=== PATIENT | male | born 1975 | race Caucasian/White ===

== ENCOUNTER → 2017-07-21 | Outpatient (CLI) | payer OTHER ==
--- NOTE | 2017-07-21 15:09 | RAD ---
Acute abdomen series with chest, 3 views, 07/21/2017: History: Generalized abdominal pain The abdominal gas pattern is unremarkable without evidence of obstruction. No free air is seen in the abdomen. There is no evidence of organomegaly. Lower pelvic calcifications are compatible with phleboliths. The heart size is normal. The lungs are clear. There is no evidence of pleural fluid. IMPRESSION: No acute abdominal abnormality is detected.
== END | disposition home or self-care (01) ==
LOC: PMG 14:26
PROVIDERS: ATTEND Physician Assistant
DX: R10.9 Unspecified abdominal pain (principal)
CPT/HCPCS: 74022

== ENCOUNTER → 2017-10-28 | Outpatient (CLI) | payer OTHER ==
--- NOTE | 2017-10-28 12:40 | RAD ---
PA and lateral chest radiograph. History: Cough. Comparison: July 21, 2017. Findings: Cardiomediastinal silhouette is within normal limits for size. No pneumothorax or pleural effusion is identified. Patchy consolidation is seen in the left lower lobe, compatible with pneumonia. Impression: 1. Left lower lobe infiltrate, compatible with pneumonia. Recommend appropriate treatment and follow-up PA and lateral chest radiograph in 6-8 weeks to ensure resolution. Electronically signed by: Abdiaziz Rao MD (10/28/2017 12:36 PM) [place] [id number]
== END | disposition home or self-care (01) ==
LOC: PMG 12:08
PROVIDERS: ATTEND Physician Assistant
DX: R06.00 Dyspnea, unspecified (principal)
CPT/HCPCS: 71046

== ENCOUNTER → 2017-11-11 | Outpatient (CLI) | payer OTHER ==
--- NOTE | 2017-11-11 16:25 | RAD ---
EXAM: Chest, 2 views. HISTORY: Pneumonia. COMPARISON: 10/28/2017 FINDINGS: Frontal and lateral views of the chest are obtained. There has been slight interval decrease in left lower lobe infiltrate. There is no pleural effusion or pneumothorax. The heart is normal in size. IMPRESSION: Slight interval decrease in left lower lobe infiltrate. Continued follow-up is recommended to confirm complete resolution Electronically signed by: Heaven Holloway MD (11/11/2017 4:21 PM) [place] [id number]
== END | disposition home or self-care (01) ==
LOC: DXRAD 15:52
PROVIDERS: ATTEND Physician Assistant
DX: J18.1 Lobar pneumonia, unspecified organism (principal); R91.8 Other nonspecific abnormal finding of lung field
CPT/HCPCS: 71046

== ENCOUNTER 2017-12-03 19:54 | Emergency (ER) | payer OTHER ==
[~2017-12-03] VITALS: Ht 172.7 cm; Wt 144.8 kg
[2017-12-03] MEDS ORDERED: IV RINGERS SOLUTION,LACTATED 1,000 ML IV ONE (20:45)
[2017-12-03 20:58] LABS: BASO % 1 % (0-3); EOS # 0.2 x10^3/uL (0.0-0.7); EOS % 2 % (0-3); HEMATOCRIT 47.3 % (39.0-53.0); HEMOGLOBIN 15.8 g/dL (13.0-17.5); LYMPH # 2.5 x10^3/uL (1.0-4.8); LYMPH % 24 % (24-48); MEAN CORPUSCULAR HEMOGLOBIN 29 pg (25-35); MEAN CORPUSCULAR HGB CONC 33 g/dL (31-37); MEAN CORPUSCULAR VOLUME 86 fL (79-100); MONO # 0.9 x10^3/uL (0.0-1.1); MONO % 8 % (0-9); NEUT # 6.9 x10^3uL (1.8-7.7); NEUT % 65 % (31-73); PLATELET COUNT 176 x10^3/uL (140-400); RED BLOOD COUNT 5.51 x10^6/uL (4.30-5.70); RED CELL DISTRIBUTION WIDTH 14.7 % (11.5-14.5); WHITE BLOOD COUNT 10.5 x10^3/uL (4.0-11.0)
--- NOTE | 2017-12-03 21:15 | ED.ADGEN ---
Past History Past Medical History: Pneumonia, Other Adult General Chief Complaint Chief Complaint ".. I ve had cough and pneumonia for a month now.. I ve been thru. 4 course of antibiotics... I am still coughing to the point I almost pass out... I cant get in to see Dr. Ramirez for almost a month more... I also had course of steroids.... I don't smoke any more... this all started with a pneumonia...they say it can still be seen on the Lt. ... and that where I hurt... .. I do have HTN... and once they diagnosed me with Bronchitis..." HPI HPI Patient is a 42 year old male who presents with above hx and complaints of dyspnea and pleuritic chest pain. 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) Review of Systems Review of Systems Constitutional: Denies fever or chills [] Eyes: Denies change in visual acuity, redness, or eye pain [] HENT: Denies nasal congestion or sore throat [] Respiratory: History of cough that is now nonproductive Cardiovascular: No additional information not addressed in HPI [] GI: Denies abdominal pain, nausea, vomiting, bloody stools or diarrhea [] : Denies dysuria or hematuria [] Musculoskeletal: Denies back pain or joint pain [] Integument: Denies rash or skin lesions [] Neurologic: Denies headache, focal weakness or sensory changes [] Endocrine: Denies polyuria or polydipsia [] All other systems were reviewed and found to be within normal limits, except as documented in this note. Family History Family History Noncontributory Current Medications Current Medications Current Medications Medications (Trade) Dose Ordered Sig/Jeanmarie Start Time Stop Time Status Last Admin Dose Admin Iohexol (Omnipaque 300 Mg/ml) 75 ml 1X ONCE 12/03/17 22:00 12/03/17 22:01 DC 12/03/17 22:10 75 ML Lactated Ringer's 1,000 ml @ 75 mls/hr 1X ONCE 12/03/17 20:45 12/04/17 03:06 DC 12/03/17 22:31 75 MLS/HR Allergies Allergies Allergies Coded Allergies Type Severity Reaction Last Updated Verified No Known Drug Allergies 12/03/17 No Physical Exam Physical Exam Constitutional: Well developed, well nourished, no acute distress, non-toxic appearance. [] HENT: Normocephalic, atraumatic, bilateral external ears normal, oropharynx moist, no oral exudates, nose normal. [] Eyes: PERRLA, EOMI, conjunctiva normal, no discharge. [] Neck: Normal range of motion, no tenderness, supple, no stridor. [] Cardiovascular:Heart rate regular rhythm, no murmur [] Lungs & Thorax: Bilateral breath sounds equal at apexes with scattered wheezes on auscultation []doesn't appear to be some increased crackles in left base posteriorly which clears with cough. Abdomen: Bowel sounds normal, soft, no tenderness, no masses, no pulsatile masses. [] Skin: Warm, dry, no erythema, no rash. [] Back: No tenderness, no CVA tenderness. [] Extremities: No tenderness, no cyanosis, no clubbing, ROM intact, no edema. [] No cording noted. Neurologic: Alert and oriented X 3, normal motor function, normal sensory function, no focal deficits noted. [] Psychologic: Affect normal, judgement normal, mood normal. [] Current Patient Data Lab Results Laboratory Tests Test 12/03/17 20:00 12/03/17 21:00 12/03/17 21:45 White Blood Count 10.5 x10^3/uL (4.0-11.0) Red Blood Count 5.51 x10^6/uL (4.30-5.70) Hemoglobin 15.8 g/dL (13.0-17.5) Hematocrit 47.3 % (39.0-53.0) Mean Corpuscular Volume 86 fL (79-100) Mean Corpuscular Hemoglobin 29 pg (25-35) Mean Corpuscular Hemoglobin Concent 33 g/dL (31-37) Red Cell Distribution Width 14.7 % (11.5-14.5) H Platelet Count 176 x10^3/uL (140-400) Neutrophils (%) (Auto) 65 % (31-73) Lymphocytes (%) (Auto) 24 % (24-48) Monocytes (%) (Auto) 8 % (0-9) Eosinophils (%) (Auto) 2 % (0-3) Basophils (%) (Auto) 1 % (0-3) Neutrophils # (Auto) 6.9 x10^3uL (1.8-7.7) Lymphocytes # (Auto) 2.5 x10^3/uL (1.0-4.8) Monocytes # (Auto) 0.9 x10^3/uL (0.0-1.1) Eosinophils # (Auto) 0.2 x10^3/uL (0.0-0.7) Basophils # (Auto) 0.0 x10^3/uL (0.0-0.2) Troponin I Quantitative < 0.017 ng/mL (0-0.055) Prothrombin Time 10.0 SEC (9.4-11.4) Prothrombin Time INR 1.0 (0.9-1.1) PTT 26 SEC (23-33) Sodium Level 143 mmol/L (136-145) Potassium Level 4.3 mmol/L (3.5-5.1) Chloride Level 106 mmol/L (98-107) Carbon Dioxide Level 29 mmol/L (21-32) Anion Gap 8 (6-14) Blood Urea Nitrogen 15 mg/dL (8-26) Creatinine 0.8 mg/dL (0.7-1.3) Estimated GFR (Cockcroft-Gault) 107.1 Glucose Level 98 mg/dL (70-99) Calcium Level 9.2 mg/dL (8.5-10.1) Total Bilirubin 0.4 mg/dL (0.2-1.0) Direct Bilirubin 0.1 mg/dL (0.0-0.2) Aspartate Amino Transferase (AST) 37 U/L (15-37) Alanine Aminotransferase (ALT) 81 U/L (16-63) H Alkaline Phosphatase 80 U/L (46-116) QE-Wqa-X-Type Natriuretic Peptide 8 pg/mL (0-124) Total Protein 7.3 g/dL (6.4-8.2) Albumin 3.5 g/dL (3.4-5.0) Urine Collection Type Unknown Urine Color Yellow Urine Clarity Clear Urine pH 6.0 Urine Specific Stark >=1.030 Urine Protein Neg (NEG-TRACE) Urine Glucose (UA) Neg mg/dL (NEG) Urine Ketones (Stick) Neg mg/dL (NEG) Urine Blood Neg (NEG) Urine Nitrite Neg (NEG) Urine Bilirubin Neg (NEG) Urine Urobilinogen Dipstick 0.2 mg/dL (0.2 mg/dL) Urine Leukocyte Esterase Neg (NEG) Urine RBC 0 /HPF (0-2) Urine WBC Rare /HPF (0-4) Urine Squamous Epithelial Cells None /LPF Urine Bacteria 0 /HPF (0-FEW) Urine Mucus Marked /LPF EKG EKG My interpretation EKG shows a sinus rhythm at 86 bpm. No acute pathology appreciated[] Radiology/Procedures Radiology/Procedures My interpretation of chest x-ray shows some left basilar atelectasis versus infiltrate. CT of chest shows no PE. There is some basilar atelectasis. Radiology recommended repeat x-ray in 6-8 weeks.[] Course & Med Decision Making Course & Med Decision Making Pertinent Labs and Imaging studies reviewed. (See chart for details). Continue incentive spirometer. Use MDI 2 puffs 4 times a day. Keep follow-up with pulmonary. Suspect this could be post pertussis infection cough. Patient also has a history of GERD. Patient also on a blood pressure medicine but does not know the type.-Possible RIGO inhibitor cough. [] Final Impression Final Impression 1. Cough 2. Dyspnea 3. Hx. of Pneumonia[] 4. Pleuritic chest pain Dragon Disclaimer Dragon Disclaimer This electronic medical record was generated, in whole or in part, using a voice recognition dictation system. ANMOL DONALDSON MD Dec 03, 2017 21:15
[2017-12-03] MEDS ORDERED: IOHEXOL 300 MG/ML 75 ML VIAL. IV ONE (22:00)
[2017-12-03 22:20] LABS: ALBUMIN 3.5 g/dL (3.4-5.0); CALCIUM 9.2 mg/dL (8.5-10.1); CREATININE 0.8 mg/dL (0.7-1.3); DIRECT BILIRUBIN 0.1 mg/dL (0.0-0.2); GFR 107.1; POTASSIUM 4.3 mmol/L (3.5-5.1); TOTAL BILIRUBIN 0.4 mg/dL (0.2-1.0); TOTAL PROTEIN 7.3 g/dL (6.4-8.2)
[2017-12-03 22:25] LABS: BACTERIA,URINE 0 /HPF (0-FEW); BILIRUBIN,URINE NEG (NEG); CLARITY,URINE CLEAR; COLOR,URINE YELLOW; GLUCOSE,URINE NEG (NEG); NITRITE,URINE NEG (NEG); RBC,URINE 0 /HPF (0-2); UROBILINOGEN,URINE 0.2 mg/dL (0.2 mg/dL); WBC,URINE RARE /HPF (0-4)
--- NOTE | 2017-12-03 23:07 | RAD ---
Indication: Chest pain, cough, congestion, and short of air. Pneumonia Technique: Axial images and coronal and sagittal maximum intensity projection reformatted images are provided. 75 mL of intravenous Omnipaque 300 was administered without complication. No comparison CT is available. One or more of the following individualized dose reduction techniques were utilized for this examination: 1. Automated exposure control 2. Adjustment of the mA and/or kV according to patient size 3. Use of iterative reconstruction technique Findings: There is no large central filling defect to suggest pulmonary embolism. Mixing artifact limits evaluation of lobar arteries and more peripheral. Consider repeat bolus or consider VQ lung scan depending on degree of suspicion. There is no aortic aneurysm or dissection. Heart is not enlarged. There is no hilar or mediastinal adenopathy. Central airways are patent. There is no pleural effusion. There is atelectasis in the lung bases. There is granulomatous disease. There is fatty infiltration of the liver. There is no adrenal mass. Bony structures are intact. IMPRESSION: 1. No central filling defect to suggest pulmonary embolism. Mixing artifact limits evaluation of lobar arteries and more peripherally. Consider either repeat exam or VQ lung scan depending on degree of concern. Electronically signed by: Kush Wolf MD (12/03/2017 11:04 PM) [facility]
--- NOTE | 2017-12-04 00:08 | RAD ---
PA and lateral chest x-ray HISTORY: Chest pain and shortness of breath and cough. FINDINGS: Heart size normal. Mediastinal silhouette is normal. No pneumothorax. No pleural effusions. Retrocardiac left lower lobe posterior linear atelectasis or scarring versus early infiltrate. Right lung clear. Bones unremarkable. IMPRESSION: Retrocardiac left lower lobe linear atelectasis, scarring versus early pneumonic infiltrate. Electronically signed by: Luis Enrique Mitchell MD (12/04/2017 12:05 AM) [facility]
[2017-12-04 03:04] VITALS: BP 149/90
--- NOTE | 2017-12-04 03:48 | EKG ---
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
== END 2017-12-04 03:04 | disposition home or self-care (01) ==
LOC: ER 19:54
DX: R06.00 Dyspnea, unspecified (principal); R07.81 Pleurodynia; R05 Cough
CPT/HCPCS: 36415; 71046; 71275; 80048; 80076; 81001; 83880; 84484; 85025; 85610; 85730; 87040; 93005; 99285; J7120; Q9967

== ENCOUNTER → 2018-11-18 | Outpatient (CLI) | payer BC ==
--- NOTE | 2018-11-18 17:15 | RAD ---
Examination: Supine and upright views of the abdomen HISTORY: History of lower abdominal pain COMPARISON: None available FINDINGS: The bowel gas pattern appears unremarkable. Feces and gas noted in the colon. IMPRESSION: Unremarkable gas pattern Electronically signed by: Al Dietrich MD (11/18/2018 5:12 PM) [id number]
== END | disposition home or self-care (01) ==
LOC: DXRAD 13:53
PROVIDERS: ATTEND Physician Assistant
DX: R10.30 Lower abdominal pain, unspecified (principal)
CPT/HCPCS: 74019

== ENCOUNTER → 2018-11-19 | Outpatient (CLI) | payer BC ==
[~2018-11-19] MED LIST: IOHEXOL 240 MG/ML 50ML VIAL. ONE; IOHEXOL 240 MG/ML 50ML VIAL. PO ONE; IOHEXOL 300 MG/ML 75 ML VIAL. IV ONE
--- NOTE | 2018-11-19 16:04 | RAD ---
Examination: CT ABD PELV W/ORAL IV CONTRAST History: Elevated white blood cell count, abdominal pain since 11/11/2018 Comparison/Correlation: None Findings: Axial images of the abdomen and pelvis were obtained following IV contrast. Sagittal and coronal reformatted images provided. Oral contrast was administered. Visualized lung bases are clear. Diffuse fatty infiltration of liver is present. Spleen is unremarkable. Gallbladder fossa is normal. Pancreas is normal. Adrenal glands are unremarkable. Right renal lower pole cyst is present. Left kidney is unremarkable. No inflammatory change about the cecum identified. Appendix is unremarkable. Circumferential thickening at the proximal to mid sigmoid colon is notable with surrounding stranding. At the superior margin of this segment of the colon, there is inflammation there is a small gas collection. Adjacent punctate gas collection also seen slightly more superiorly. Possibly of contained perforation is raised. No loculated fluid collections. No enlarged abdominal or pelvic lymph nodes. No ascites or pelvic free fluid. Urinary bladder is unremarkable. Small left inguinal hernia contains omental fat. Bony structures are unremarkable. Impression: Sigmoid diverticulitis. Loculated gas along the superior margin is suggested raising concern for contained perforation. No fluid collection. Follow-up to resolution is recommended to exclude possible underlying neoplastic process. On 11/11/2018 at 3:54 PM, the referring PAs office was informed. Dr. Means of the emergency Department was also informed. PQRS Compliance Statement: One or more of the following individualized dose reduction techniques were utilized for this examination: 1. Automated exposure control 2. Adjustment of the mA and/or kV according to patient size 3. Use of iterative reconstruction technique Electronically signed by: Ihsan Richmond MD (11/19/2018 4:01 PM) [id number]
== END | disposition home or self-care (01) ==
LOC: CT 14:00
DX: K57.32 Diverticulitis of large intestine without perforation or abscess without bleeding (principal); K76.0 Fatty (change of) liver, not elsewhere classified; K40.90 Unilateral inguinal hernia, without obstruction or gangrene, not specified as recurrent; N28.1 Cyst of kidney, acquired; D72.829 Elevated white blood cell count, unspecified
CPT/HCPCS: 74177; Q9966; Q9967